=== PATIENT | male | born 1965 | race Caucasian/White ===

== ENCOUNTER 2020-10-03 17:07 | Emergency (ER) | payer OTHER, SELFPAY ==
[2020-10-03 17:40] VITALS: BP 139/87; PULSE 77; RESP 20; TEMP 36.9; O2SAT 98; BMI 25.7
--- NOTE | 2020-10-03 18:06 | HMH.EDUTC ---
[facility] – [place] Disposition Clinical Impression: Orchitis, right Disposition: Home, Self-Care Condition on Discharge: Good Instructions: DI for Orchitis Additional Instructions: Drink plenty of fluids. Take tylenol or ibuprofen for pain or fever. Take the medications as directed. Follow up with your regular doctor. Follow up with urology (Dr. Pritchard). I put in a referral but you need to call that office for an appointment. GO TO THE ER FOR ANY WORSENING SYMPTOMS Prescriptions: Ibuprofen [Ibuprofen 600mg Tablet] 600 mg PO Q6HP PRN #30 tab PRN Reason: Mild Pain Transmission Status: Received by [facility] Doxycycline Hyclate [Doxycycline 100mg Capsule] 100 mg PO Q12 10 Days #20 cap Transmission Status: Received by [facility] Referrals: Say Solano MD [Primary Care Provider] - Chuck Pritchard MD [Staff Physician] - Time of Disposition: 18:24 Medical Decision Making - Medical Records Medical records reviewed: Yes: I reviewed the patient's medical records. - Santana Inquiry Pt receiving controlled substance: No Vital Signs: 10/03/20 17:40 10/03/20 18:26 Temperature 98.4 F 98.4 F Temperature Source Oral Pulse Rate 77 Pulse Rate [Right Brachial] 77 Respiratory Rate 20 20 Blood Pressure 139/87 Blood Pressure [Right Arm] 139/87 Blood Pressure Mean [Right Arm] 104 Blood Pressure Source [Right Arm] Automatic Cuff Blood Pressure Position [Right Arm] Sitting 02 Sat by Pulse Oximetry 98 Oxygen Delivery Method Room Air - Lab Data Lab results reviewed: Yes: I reviewed the patient's lab results. Lab Results 10/03/20 17:57: Urine Color Yellow, Urine Appearance Clear, Urine pH 6.0, Ur Specific Golden 1.005, Urine Protein Negative, Urine Glucose (UA) Negative, Urine Ketones Negative, Urine Blood Negative, Urine Nitrate Negative, Urine Bilirubin Negative, Urine Urobilinogen 0.2, Ur Leukocyte Esterase Negative Orders (Tests/Meds): ED MEDICATIONS Discontinued Medications Generic Name Dose Route Start Last Admin Trade Name Freq PRN Reason Stop Dose Admin Ceftriaxone Sodium 1 gm 10/03/20 18:09 10/03/20 18:15 Ceftriaxone 1gm Vial IM 10/03/20 18:10 1 gm ONCE ONE Administration Protocol Lidocaine HCl 0 ml 10/03/20 18:09 10/03/20 18:15 Lidocaine 1% 5ml Pf Vial IM 10/03/20 18:10 2.1 ml ONCE ONE Administration ORDERS Category Date Time Status Urine Culture Stat Micro 10/03/20 17:45 Received [facility] [place] HPI - General Stated complaint: testicle swollen Time Seen by Provider: 10/03/20 18:06 Mode of Arrival: Ambulatory Source of Information: Patient Limitations: No Limitations Description of Symptoms (Recalled from Triage Doc. by RN): PATIENT C/O SWELLING AND PAIN TO RIGHT TESTICLE X 1 WEEK. DENIES ANY DIFFICULTY URINATING HEENT Symptoms (Recalled from RN notes): No Resp Symptoms (Recalled from RN notes): No Skin Symptoms (Recalled from RN notes): No MS Symptoms (Recalled from RN notes): No Functional Status (Recalled from RN notes): WNL - History of Present Illness Provider Complaint: He states that for the past 1 week he has had right testicular swelling and tenderness. He denies any dysuria. He denies any fever/chills. He denies redness or swelling elsewhere. Pain scale is 2/10. He states that it really only hurts when he tries to walk fast. - Related Data Previous Rx's Medication Instructions Recorded Doxycycline Hyclate [Doxycycline 100 mg PO Q12 10 Days #20 cap 10/03/20 100mg Capsule] Ibuprofen [Ibuprofen 600mg 600 mg PO Q6HP PRN #30 tab 10/03/20 Tablet] Allergies Allergy/AdvReac Type Severity Reaction Status Date / Time No Known Allergies Allergy Verified 10/03/20 18:00 - Worker's Comp Is this a Worker's Comp case?: No [facility] History - Hepatitis A Screen Drug use history?: No High risk sexual behaviors?: No History of sexually transmitted infection?: No Currently employed?: No
[2020-10-03 18:26] VITALS: BP 139/87; PULSE 77; RESP 20; TEMP 36.9; O2SAT 98
[2020-10-03 18:46] LABS: Apearance,Urine Clear (Clear); Bilirubin,Urine Negative (Negative); Blood, Urine Negative (Negative); Color,Urine Yellow (Yellow); Glucose,Urine (UA) Negative (Negative); Ketones,Urine Negative (Negative); Protein,Urine Negative (Negative); Specific Gravity, Urine 1.005 (1.005-1.030)
[2020-10-03 18:47] LABS: UTC Leukocyte Esterase,Urine Negative (Negative); UTC Nitrate,Urine Negative (Negative); Urobilinogen,Urine 0.2 EU/dl (0.2)
[2020-10-06 18:13] LABS: Neisseria gonorrhoeae, NAA Negative (Negative)
== END 2020-10-03 18:30 | disposition home or self-care (01) ==
PROVIDERS: Emergency Provider Nurse Practitioner Family; PCP Family Medicine
DX: N45.2 Orchitis (principal); F17.290 Nicotine dependence, other tobacco product, uncomplicated
CPT/HCPCS: 81003; 87086; 87491; 87591; 96372; 99202; G0463

== ENCOUNTER → 2020-10-20 10:52 | Outpatient (CLI) | payer OTHER, SELFPAY ==
--- NOTE | 2020-10-20 10:52 | US_ITS ---
PROCEDURE: US TESTICULAR CLINICAL INDICATION: Right testicular pain and swelling COMPARISON: No exams were available for comparison FINDINGS: There is a large hydrocele on the right. The right testicle has an unremarkable appearance measuring 5 x 2 x 2.4 cm. Blood flow is present. No obvious testicular mass. The fluid in the right hydrocele is anechoic without significant debris. The right hemiscrotum with hydrocele measures 10 x 8 cm. The left testicle is 4 x 2 x 2 cm and has an unremarkable appearance. Blood flow is present. No obvious testicular mass. No hydrocele on the left. IMPRESSION: Large right hydrocele. Dictated by: Victoriano Brown MD 10/21/2020 07:23 Victoriano Brown MD in [place] 10/21/2020 07:23
== END ==
PROVIDERS: PCP Family Medicine; Visit Provider Urology
DX: N50.89 Other specified disorders of the male genital organs (principal)
CPT/HCPCS: 76870

== ENCOUNTER → 2020-11-04 12:20 | Outpatient (CLI) | payer OTHER, SELFPAY ==
[2020-11-04 12:22] LABS: MANUAL DIFFERENTIAL MANUAL DIFFERENTIAL (MANUAL DIFF)
[2020-11-04 12:46] LABS: Basophils % 0.5 % (0.1-2.0); Eosinophils % 0.4 % (0.1-12.0); Hematocrit 40.2 % (42.0-52.0); Hemoglobin 13.9 g/dL (14.1-18.0); Lymphocytes # 0.9 K/mm3 (0.7-4.5); Lymphocytes % 18.3 % (10-50); Mean Corpuscular HGB Conc 34.6 g/dL (31.8-35.4); Mean Corpuscular Hemoglobin 32.9 pg (27.0-31.2); Mean Corpuscular Volume 94.9 fl (80-94); Mean Platelet Volume 7.1 fl (7.4-10.4); Monocytes # 0.5 K/mm3 (0.1-1.0); Monocytes % 8.6 % (1.7-9.3); Neutrophils # 3.7 K/mm3 (1.8-7.8); Neutrophils % 72.2 % (37.0-80.0); Platelet Count 134 K/mm3 (142-424); Red Blood Count 4.23 M/mm3 (4.60-6.20); Red Cell Distribution Width 13.6 % (11.5-17.5); White Blood Count 5.2 K/mm3 (4.8-10.8)
[2020-11-04 13:16] LABS: Lymphocytes % 17 % (10-50); Monocytes % 6 % (2-9); Neutrophils % 77 % (42-76); Platelet Estimate Normal; RBC Morphology Normal; Total Cells Counted 100
[2020-11-04 14:00] LABS: Anion Gap 14.5 mEq/L (5-15); Blood Urea Nitrogen 8 mg/dl (9-20); Calcium 8.6 mg/dl (8.4-10.2); Carbon Dioxide 28 mmol/L (22.0-30.0); Chloride 101 mmol/L (98-107); Estimated Glomerular Filt Rate 116 ml/min (>60); GFR (African American) 141 ML/MIN (>60); Glucose 174 mg/dl (74-100); Potassium 4.5 mmoL/L (3.5-5.1); Sodium 139 mmol/L (136-145)
== END ==
PROVIDERS: Visit Provider Urology
DX: Z01.812 Encounter for preprocedural laboratory examination (principal); Z11.52 Encounter for screening for COVID-19; N43.3 Hydrocele, unspecified
CPT/HCPCS: 36415; 80048; 85007; 85014; 85018; 85048; 85049; U0003

== ENCOUNTER → 2020-11-18 10:12 | Outpatient (CLI) | payer OTHER, SELFPAY | PROVIDERS: Visit Provider Urology | DX: Z01.812 Encounter for preprocedural laboratory examination (principal); Z20.822 Contact with and (suspected) exposure to COVID-19; N43.3 Hydrocele, unspecified | CPT/HCPCS: U0003 ==

== ENCOUNTER 2020-11-20 07:59 | Day surgery (SDC) | payer OTHER, SELFPAY ==
[2020-10-31 13:10] VITALS: BMI 23.0
[2020-11-20] VITALS (10 sets, daily range): BP systolic 142–184; BP diastolic 76–100; PULSE 72–88; RESP 12–18; TEMP 36.2–38; O2SAT 96–99
--- NOTE | 2020-11-20 08:35 | HMH.ANESCL ---
[facility] Anesthesia Checklist - Patient Identification Patient Identification: Arm Band - Structural Data Admitted From: Home Planned Operative Procedure/s: HYdrocele repair Consent for Planned Operative Procedure(s) Verified: Yes - NPO Status Verified Time NPO: 00:00 - Additional verifications Anesthesia Reactions: No Hx Blood Transfusions: Yes Blood Transfusion Reaction: No - Airway Assessment C-Spine Mobility Assessed: Yes TMJ Mobility Assessed: Yes Dentition: Poor Dentition (Missing) - Neurological Assessment Level of Consciousness: Awake Hx Seizures: No Numbness or tingling in extremities: Yes - Anesthesia Plan Anesthesia Risk discussed: Yes Anesthesia Plan: Verified ASA Class: II Anesthesia Type: General [facility] History I have reviewed the patient's past medical history: Yes Medical History: Reports:: Hyperlipidemia, Hypertension Denies:: Cancer, Diabetes Mellitus Type 1, Diabetes Mellitus Type 2, MRSA, Seizures *Have you ever received a pneumonia vaccine?: No *Have you received a flu vaccine this season?: No Other Medical History: Reports: Anemia, Arthritis. Denies: Blood Transfusion Reaction Anesthesia experience/problems:: None Other Surgeries: Yes: No Previous Surgery Amputation: No Fractures: No - *Social History Last grade of school completed: High school graduate Smoking Status: Never smoker Tobacco Type: smokeless tobacco # Packs/Day (cigarettes): 0 Alcohol Intake: never Substance Use Type: denies use *Occupational Status:: employed Housing: house Household Members: children *Travel in the last 8 weeks: None Family Hx:: Cancer, Coronary Artery Disease, Heart Attack
--- NOTE | 2020-11-20 13:45 | HMH.ANESI ---
[facility] Anesthesia Record Part I Intake, IV Amount: 1,200 Estimated blood loss (mL): 5 Urine output (mL): 0 Blood Pressure: 150/88 SaO2: 98 Pulse Rate: 74 Respiratory Rate: 12 Temperature: 97.2 F Patient is:: Awake, Drowsy Stable to PACU at:: 12:07
--- NOTE | 2020-11-20 16:09 | P.OP_ITS ---
Date of procedure: 11/20/20 Pre-op Diagnosis:: Right hydrocele Post-op Diagnosis:: Right hydrocele Procedure performed:: Right hydrocelectomy Surgeon:: Chuck Pritchard MD [employer] ASSISTANT:: Other (Robles) Anesthesia: LMA Estimated blood loss (mL): 10 Clinical Note:: 55-year-old white male with right hydrocele presents for urologic management. Operative findings:: Large right hydrocele with normal testicle. Operative note:: Patient taken to the operating room after informed consent was obtained. Placed on the operating room table in the supine position and general anesthesia administered. Preoperative antibiotics and sequential compression devices placed. Patient was prepped and draped in the standard surgical fashion. Cord block was placed into the right spermatic cord. Local anesthetic also placed into the midline raphae. Incision was made in the skin of the midline raphae and carried down through the dartos fascia. The hydrocele sac was dissected free from its surrounding investing tissue and brought out through the incision. The hydrocele was heavily invested with surrounding tissue. The sac was incised total of 250 cc dee fluid obtained from the hydrocele sac. Sac was incised throughout its length a portion of the sac was excised. Hemostasis was achieved and the hydrocele sac from behind the testicle with a running 3-0 chromic care not take the neck of the repair too tight. The testicle itself was within normal limits. The testicle then placed back into the hemiscrotum and a Tristen drain placed into the dependent portion of the right hemiscrotum. It was sewn in with a silk suture. The dartos fascia was then closed with a running 3-0 chromic skin closed with interrupted horizontal mattress 4-0 chromic's. Pressure dressing applied. Patient tolerated procedure well no complications. Discharged to recovery in stable condition. Condition: stable Disposition: PACU Specimens:: Portion of the hydrocele sac Complications:: None
[2020-11-22 12:25] VITALS: BP 159/92; PULSE 77; TEMP 36.2
--- NOTE | 2020-11-22 12:25 | P.PN_ITS ---
[facility] Anesthesia Record Part II Discharge Time: 12:27 Destination: Surgical Day Care (OP Surgery) PACU nurse assessment reviewed?: Yes Patient Condition:: Good Anesthesia Complications:: None Swallowing reflex intact?: Yes Cyanosis?: No Blood Pressure: 159/92 Pulse Rate: 77 Temperature: 97.2 F Mental Status: Alert & Oriented Pain level:: 0 Nausea and/or vomitting:: None Intake, IV Amount: 0
== END 2020-11-20 13:00 | disposition home or self-care (01) ==
LOC: OR 08:00
PROVIDERS: PCP Family Medicine; Visit Provider Urology
PROC: (CPT 55040; principal; 2020-11-20 09:45)
DX: N43.3 Hydrocele, unspecified (principal); E78.5 Hyperlipidemia, unspecified; I10 Essential (primary) hypertension
CPT/HCPCS: 55040; J2405

== ENCOUNTER → 2021-05-04 10:52 | Outpatient (CLI) | payer OTHER, SELFPAY ==
--- NOTE | 2021-05-04 11:06 | XR_ITS ---
PROCEDURE: XR WRIST RT MIN 3V CLINICAL INDICATION: RT WRIST PAIN COMPARISON: No exams were available for comparison FINDINGS: There are severe osteoarthritic changes at the radiocarpal joint with loss of joint space at the radial scaphoid joint with osteosclerosis of the proximal aspect of the scaphoid and the distal aspect of the radius. Scaphoid actually causes indentation upon the distal aspect of the radius. There is widening of the scapholunate space with the lunate somewhat displaced medially. Osteoarthritic changes are present at the scapho trapezium joint and at the 1st carpal metacarpal junction. Chondrocalcinosis is present at the triangular fibrocartilage. On the lateral view there is a somewhat cloverleaf shaped calcific body dorsal to the radiocarpal junction. This may represent displaced bony fragment from the distal radius. There are no old exams available for comparison. CT of the wrist may provide further evaluation. IMPRESSION: 1. Calcific body measuring 14 x 12 mm along the dorsal aspect of the wrist at the radial carpal junction which could account for a palpable abnormality along the dorsal wrist. 2. The severe osteoarthritic changes at the scapho radial joint with concave deformity of the distal radius and impaction of the scaphoid in that deformity. Is are history of an old fracture?. There is widening of the scapholunate space with mild medial displacement of the lunate suggesting ligamentous injury. 3. Consider CT of the wrist as well as correlation with old films and patient's history for further evaluation. Dictated by: Victoriano Brown MD 05/04/2021 12:04 Victoriano Brown MD in [place] 05/04/2021 12:04
--- NOTE | 2021-05-04 11:06 | XR_ITS ---
PROCEDURE: XR SHOULDER LT MIN 2V CLINICAL INDICATION: LT SHOULDER PAIN, UNSPECIFIED CHRONICITY COMPARISON: No exams were available for comparison FINDINGS: There hypertrophic changes along the superior distal aspect of the clavicle. There are mild osteoarthritic changes of the glenohumeral joint with mild subacromial stenosis. The subcortical cystic changes are present along the humeral head laterally at the base of the greater tuberosity. No fracture or dislocation. IMPRESSION: Osteoarthritic changes of the left shoulder with subacromial stenosis and suspected subchondral cystic change of the humeral head Dictated by: Victoriano Brown MD 05/04/2021 11:59 Victoriano Brown MD in [place] 05/04/2021 11:59
[2021-05-04 11:13] LABS: Basophils % 0.6 % (0.1-2.0); Eosinophils # 0.1 K/mm3 (0.0-0.4); Eosinophils % 1.3 % (0.1-12.0); Hematocrit 40.8 % (42.0-52.0); Lymphocytes # 1.2 K/mm3 (0.7-4.5); Lymphocytes % 21.9 % (10-50); Mean Corpuscular HGB Conc 34.2 g/dL (31.8-35.4); Mean Corpuscular Hemoglobin 30.2 pg (27.0-31.2); Mean Corpuscular Volume 88.3 fl (80-94); Mean Platelet Volume 7.8 fl (7.4-10.4); Monocytes # 0.4 K/mm3 (0.1-1.0); Monocytes % 6.4 % (1.7-9.3); Neutrophils # 3.9 K/mm3 (1.8-7.8); Neutrophils % 69.7 % (37.0-80.0); Platelet Count 234 K/mm3 (142-424); Red Blood Count 4.63 M/mm3 (4.60-6.20); Red Cell Distribution Width 13.4 % (11.5-17.5); White Blood Count 5.6 K/mm3 (4.8-10.8)
--- NOTE | 2021-05-04 11:14 | XR_ITS ---
PROCEDURE: XR SHOULDER RT MIN 2V CLINICAL INDICATION: RT SHOULDER PAIN, UNSPECIFIED CHRONICITY COMPARISON: CR XR SHOULDER LT MIN 2V from 05/04/2021 FINDINGS: There osteoarthritic changes with hypertrophic change of the acromioclavicular joint. There is subacromial stenosis. Mild osteoarthritic changes are present at the glenohumeral joint. No acute fracture or dislocation. No lytic or blastic change. IMPRESSION: Osteoarthritic changes with subacromial stenosis Dictated by: Victoriano Brown MD 05/04/2021 11:49 Victoriano Brown MD in [place] 05/04/2021 11:49
[2021-05-04 12:28] LABS: Alanine Aminotransferase 9 U/L (12-78); Albumin/Globulin Ratio 1.4 (1.1-1.8); Alkaline Phosphatase 59 U/L (38-126); Anion Gap 8.5 mEq/L (5-15); Aspartate Amino Transferase 21 U/L (17-59); Bilirubin,Total 0.3 mg/dl (0.2-1.3); Blood Urea Nitrogen 9 mg/dl (9-20); Calcium 9.1 mg/dl (8.4-10.2); Carbon Dioxide 30 mmol/L (22.0-30.0); Chloride 101 mmol/L (98-107); Estimated Glomerular Filt Rate 87 ml/min (>60); GFR (African American) 105 ML/MIN (>60); Globulin 2.9 g/dL (1.3-3.2); Glucose 100 mg/dl (74-100); Potassium 4.5 mmoL/L (3.5-5.1); Sodium 135 mmol/L (136-145); Total Protein,Serum 6.9 g/dl (6.3-8.2); Uric Acid 6.4 mg/dl (3.5-8.5)
[2021-05-04 14:22] LABS: Erythrocyte Sedimentation Rate 15 mm/hr (0-20)
[2021-05-05 09:12] LABS: RA Latex Turbid. <10.0 IU/mL (<14.0)
[2021-05-07 11:33] LABS: Antinuclear Antibodies, IFA Negative (.)
== END ==
PROVIDERS: Visit Provider Nurse Practitioner
DX: M25.512 Pain in left shoulder (principal); M25.511 Pain in right shoulder; M25.531 Pain in right wrist
CPT/HCPCS: 36415; 73030; 73110; 80053; 84550; 85025; 85651; 86038; 86431

== ENCOUNTER → 2021-05-17 13:02 | Outpatient (CLI) | payer OTHER, SELFPAY ==
--- NOTE | 2021-05-17 13:06 | XR_ITS ---
PROCEDURE: XR SHOULDER RT MIN 2V CLINICAL INDICATION: right shoulder pain COMPARISON: CR XR SHOULDER RT MIN 2V from 05/04/2021 CR XR SHOULDER LT MIN 2V from 05/04/2021 FINDINGS: No fracture or dislocation. No lytic or blastic change. There is normal mineralization. Moderate to severe osteoarthritic change of the glenohumeral joint and acromioclavicular joint with bony hypertrophy at the AC joint. Subacromial stenosis. Well-circumscribed calcific density noted lateral to the lateral aspect of the acromion measuring 3 mm. IMPRESSION: Osteoarthritis with subacromial stenosis Dictated by: Victoriano Brown MD 05/17/2021 16:22 Victoriano Brown MD in [place] 05/17/2021 16:22
--- NOTE | 2021-05-17 13:06 | XR_ITS ---
PROCEDURE: XR SHOULDER LT MIN 2V CLINICAL INDICATION: left shoulder pain The the COMPARISON: CR XR SHOULDER RT MIN 2V from 05/04/2021 CR XR SHOULDER LT MIN 2V from 05/04/2021 FINDINGS: No fracture or dislocation. No lytic or blastic change. There is normal mineralization. Mild osteoarthritic change of the glenohumeral joint and acromioclavicular joint. Mild subacromial stenosis. IMPRESSION: Mild osteoarthritic change with mild subacromial stenosis Dictated by: Victoriano Brown MD 05/17/2021 16:26 Victoriano Brown MD in [place] 05/17/2021 16:26
== END ==
PROVIDERS: PCP Family Medicine; Visit Provider Orthopaedic Surgery
DX: M25.512 Pain in left shoulder (principal); M25.511 Pain in right shoulder
CPT/HCPCS: 73030

== ENCOUNTER → 2021-06-28 13:16 | Outpatient (CLI) | payer OTHER, SELFPAY ==
--- NOTE | 2021-06-28 13:22 | XR_ITS ---
FINAL REPORT CLINICAL HISTORY: cough, r/o covid FINDINGS: The heart size is normal. The mediastinum is normal. There is no focal infiltrate or edema. There are no pleural effusions. There is no pneumothorax. There is no osseous abnormality. IMPRESSION: No acute cardiopulmonary process Reviewed, Interpreted and Dictated by Dominic Cam MD Transcribed by Israel Gomez Authenticated by Dominic Cam MD on 06/28/2021 02:22:27 PM [facility]
[2021-06-28 13:46] LABS: Adenovirus,PCR Not Detected (NotDetected); Bordetella Pertussis Not Detected (NotDetected); Chlamydophila Pneumoniae, PCR Not Detected (NotDetected); Coronavirus 229E Not Detected (NotDetected); Coronavirus NL63 Not Detected (NotDetected); Coronavirus OC43 Not Detected (NotDetected); Coronovirus HKU1,PCR Not Detected (NotDetected); Human Metapneumovirus Not Detected (NotDetected); Influenza A, PCR Not Detected (NotDetected); Influenza AH1, 2009 Not Detected (NotDetected); Influenza AH1, PCR Not Detected (NotDetected); Influenza AH3,PCR Not Detected (NotDetected); Influenza B, PCR Not Detected (NotDetected); Mycoplasma Pneumoniae, PCR Not Detected (NotDetected); Parainfluenza 1, PCR Not Detected (NotDetected); Parainfluenza 2, PCR Not Detected (NotDetected); Parainfluenza 3, PCR Not Detected (NotDetected); Parainfluenza 4, PCR Not Detected (NotDetected); Respiratory Syncytial Virus Not Detected (NotDetected); Rhinovirus/Enterovirus Not Detected (NotDetected)
[2021-06-28 13:57] LABS: Basophils # 0.1 K/mm3 (0-0.2); Basophils % 0.8 % (0.1-2.0); Eosinophils # 0.1 K/mm3 (0.0-0.4); Hematocrit 43.2 % (42.0-52.0); Hemoglobin 14.6 g/dL (14.1-18.0); Lymphocytes # 1.5 K/mm3 (0.7-4.5); Lymphocytes % 22.8 % (10-50); Mean Corpuscular HGB Conc 33.7 g/dL (31.8-35.4); Mean Corpuscular Hemoglobin 30.6 pg (27.0-31.2); Mean Corpuscular Volume 90.7 fl (80-94); Mean Platelet Volume 8.1 fl (7.4-10.4); Monocytes # 0.3 K/mm3 (0.1-1.0); Monocytes % 5.3 % (1.7-9.3); Neutrophils # 4.5 K/mm3 (1.8-7.8); Neutrophils % 70.1 % (37.0-80.0); Platelet Count 242 K/mm3 (142-424); Red Blood Count 4.76 M/mm3 (4.60-6.20); Red Cell Distribution Width 13.9 % (11.5-17.5); White Blood Count 6.4 K/mm3 (4.8-10.8)
[2021-06-28 16:02] LABS: Coronavirus 19, PCR Detected (NotDetected)
== END ==
PROVIDERS: PCP Physician Assistant; Visit Provider Physician Assistant
DX: U07.1 COVID-19 (principal)
CPT/HCPCS: 36415; 71045; 85025; 87581; 87632; 87798; C9803; U0003; U0005

== ENCOUNTER 2021-07-19 11:41 | Outpatient (RCR) | payer OTHER, SELFPAY | END 2021-07-19 12:41 | disposition home or self-care (01) | LOC: OT 11:41 | PROVIDERS: Visit Provider Orthopaedic Surgery | DX: G56.02 Carpal tunnel syndrome, left upper limb (principal) | CPT/HCPCS: 97763 ==

== ENCOUNTER → 2021-07-24 13:07 | Outpatient (CLI) | payer OTHER, SELFPAY ==
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
== END ==
PROVIDERS: PCP Orthopaedic Surgery; Visit Provider Orthopaedic Surgery
DX: M25.531 Pain in right wrist (principal)
CPT/HCPCS: 73200

== ENCOUNTER 2021-10-30 10:06 | Outpatient (RCR) | payer OTHER, SELFPAY ==
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
== END 2021-10-30 10:10 | disposition home or self-care (01) ==
LOC: OT 10:06
PROVIDERS: Visit Provider Orthopaedic Surgery
DX: M12.811 Other specific arthropathies, not elsewhere classified, right shoulder (principal); M75.21 Bicipital tendinitis, right shoulder; M12.812 Other specific arthropathies, not elsewhere classified, left shoulder; M75.22 Bicipital tendinitis, left shoulder
CPT/HCPCS: 97166

== ENCOUNTER → 2021-12-20 09:10 | Outpatient (CLI) | payer OTHER, SELFPAY ==
--- NOTE | 2021-12-20 09:15 | XR_ITS ---
FINAL REPORT CLINICAL HISTORY: BILATERAL shoulder pain COMPARISON: 05/17/2021 FINDINGS: LEFT SHOULDER: 3 views of the left shoulder were obtained. There is no acute fracture or dislocation. There are mild degenerative changes of the acromioclavicular and glenohumeral joints. There is no soft tissue abnormality. IMPRESSION: Degenerative change, stable. Reviewed, Interpreted and Dictated by Christopher Spencer III, MD Transcribed by Christen Bryan Authenticated and [facility]
--- NOTE | 2021-12-20 09:15 | XR_ITS ---
FINAL REPORT CLINICAL HISTORY: BILATERAL shoulder pain FINDINGS: RIGHT SHOULDER 3 views of the right shoulder were obtained. There is no acute fracture or dislocation. There is moderate acromioclavicular and mild glenohumeral joint degenerative change. There is no soft tissue abnormality. IMPRESSION: Degenerative change with no acute bony abnormality. Reviewed, Interpreted and Dictated by Christopher Spencer III, MD Transcribed by Christen Bryan Authenticated and [facility]
== END ==
PROVIDERS: PCP Family Medicine; Visit Provider Orthopaedic Surgery
DX: M25.511 Pain in right shoulder (principal); M25.512 Pain in left shoulder; G89.29 Other chronic pain
CPT/HCPCS: 73030

== ENCOUNTER → 2022-07-04 13:14 | Outpatient (CLI) | payer OTHER, SELFPAY ==
[2022-07-04 19:10] LABS: Adenovirus,PCR Not Detected (NotDetected); Bordetella Pertussis Not Detected (NotDetected); Chlamydophila Pneumoniae, PCR Not Detected (NotDetected); Coronavirus 19, PCR Not Detected (NotDetected); Coronavirus 229E Not Detected (NotDetected); Coronavirus NL63 Not Detected (NotDetected); Coronavirus OC43 Not Detected (NotDetected); Coronovirus HKU1,PCR Not Detected (NotDetected); Human Metapneumovirus Not Detected (NotDetected); Influenza A, PCR Not Detected (NotDetected); Influenza AH1, 2009 Not Detected (NotDetected); Influenza AH1, PCR Not Detected (NotDetected); Influenza AH3,PCR Not Detected (NotDetected); Influenza B, PCR Not Detected (NotDetected); Mycoplasma Pneumoniae, PCR Not Detected (NotDetected); Parainfluenza 1, PCR Not Detected (NotDetected); Parainfluenza 2, PCR Not Detected (NotDetected); Parainfluenza 3, PCR Not Detected (NotDetected); Parainfluenza 4, PCR Not Detected (NotDetected); Respiratory Syncytial Virus Not Detected (NotDetected); Rhinovirus/Enterovirus Not Detected (NotDetected)
[2022-07-04 19:14] LABS: Basophils # 0.1 K/mm3 (0-0.2); Basophils % 0.5 % (0.1-2.0); Eosinophils % 0.4 % (0.1-12.0); Hematocrit 44.3 % (42.0-52.0); Hemoglobin 14.7 g/dL (14.1-18.0); Lymphocytes # 1.3 K/mm3 (0.7-4.5); Lymphocytes % 12.6 % (10-50); Mean Corpuscular HGB Conc 33.2 g/dL (31.8-35.4); Mean Corpuscular Hemoglobin 30.2 pg (27.0-31.2); Mean Corpuscular Volume 90.9 fl (80-94); Mean Platelet Volume 8.3 fl (7.4-10.4); Monocytes # 0.6 K/mm3 (0.1-1.0); Monocytes % 6.3 % (1.7-9.3); Neutrophils # 8.1 K/mm3 (1.8-7.8); Neutrophils % 80.2 % (37.0-80.0); Platelet Count 209 K/mm3 (142-424); Red Blood Count 4.87 M/mm3 (4.60-6.20); Red Cell Distribution Width 13.9 % (11.5-17.5); White Blood Count 10.2 K/mm3 (4.8-10.8)
== END ==
PROVIDERS: PCP Nurse Practitioner; Visit Provider Nurse Practitioner
DX: J06.9 Acute upper respiratory infection, unspecified (principal)
CPT/HCPCS: 85025; 87581; 87632; 87798; C9803; U0003; U0005

== ENCOUNTER → 2022-07-11 10:49 | Outpatient (CLI) | payer OTHER, SELFPAY ==
--- NOTE | 2022-07-11 10:58 | XR_ITS ---
FINAL REPORT CLINICAL HISTORY: shoulder pain COMPARISON: 12/20/2021 FINDINGS: Right shoulder Three views were obtained. There is no acute fracture or dislocation. There are moderate hypertrophic changes of the AC joint. The glenohumeral joint is intact. No soft tissue abnormality is identified. IMPRESSION: Moderate hypertrophic changes of the AC joint. Reviewed, Interpreted and Dictated by Dominic Cam MD Transcribed by Kylah Haskins Authenticated and [facility]
--- NOTE | 2022-07-11 10:58 | XR_ITS ---
FINAL REPORT CLINICAL HISTORY: shoulder pain COMPARISON: 05/17/2021 FINDINGS: Left shoulder Three views were obtained. There is no acute fracture or dislocation. There are [id number] hypertrophic changes of the AC joint. The glenohumeral joint is intact. No soft tissue abnormality is identified. IMPRESSION: Degenerative changes of the AC joint. Reviewed, Interpreted and Dictated by Dominic Cam MD Transcribed by Kylah Haskins Authenticated and [facility] [place]
== END ==
PROVIDERS: PCP Family Medicine; Visit Provider Orthopaedic Surgery
DX: M25.512 Pain in left shoulder (principal); M25.511 Pain in right shoulder
CPT/HCPCS: 73030

== ENCOUNTER → 2022-08-26 09:50 | Outpatient (CLI) | payer OTHER, SELFPAY ==
[2022-08-26 18:12] LABS: Adenovirus,PCR Not Detected (NotDetected); Bordetella Pertussis Not Detected (NotDetected); Chlamydophila Pneumoniae, PCR Not Detected (NotDetected); Coronavirus 229E Not Detected (NotDetected); Coronavirus NL63 Not Detected (NotDetected); Coronavirus OC43 Not Detected (NotDetected); Coronovirus HKU1,PCR Not Detected (NotDetected); Human Metapneumovirus Not Detected (NotDetected); Influenza A, PCR Not Detected (NotDetected); Influenza AH1, 2009 Not Detected (NotDetected); Influenza AH1, PCR Not Detected (NotDetected); Influenza AH3,PCR Not Detected (NotDetected); Influenza B, PCR Not Detected (NotDetected); Mycoplasma Pneumoniae, PCR Not Detected (NotDetected); Parainfluenza 1, PCR Not Detected (NotDetected); Parainfluenza 2, PCR Not Detected (NotDetected); Parainfluenza 3, PCR Not Detected (NotDetected); Parainfluenza 4, PCR Not Detected (NotDetected); Respiratory Syncytial Virus Not Detected (NotDetected); Rhinovirus/Enterovirus Not Detected (NotDetected)
[2022-08-26 18:35] LABS: Basophils % 0.5 % (0.1-2.0); Eosinophils # 0.1 K/mm3 (0.0-0.4); Eosinophils % 1.5 % (0.1-12.0); Hematocrit 45.5 % (42.0-52.0); Hemoglobin 14.8 g/dL (14.1-18.0); Lymphocytes % 14.1 % (10-50); Mean Corpuscular HGB Conc 32.5 g/dL (31.8-35.4); Mean Corpuscular Hemoglobin 30.1 pg (27.0-31.2); Mean Corpuscular Volume 92.6 fl (80-94); Mean Platelet Volume 8.7 fl (7.4-10.4); Monocytes # 0.4 K/mm3 (0.1-1.0); Monocytes % 6.3 % (1.7-9.3); Neutrophils # 5.4 K/mm3 (1.8-7.8); Neutrophils % 77.7 % (37.0-80.0); Platelet Count 242 K/mm3 (142-424); Red Blood Count 4.92 M/mm3 (4.60-6.20); Red Cell Distribution Width 13.9 % (11.5-17.5); White Blood Count 6.9 K/mm3 (4.8-10.8)
[2022-08-26 21:39] LABS: Coronavirus 19, PCR Detected (NotDetected)
== END ==
PROVIDERS: PCP Nurse Practitioner; Visit Provider Nurse Practitioner
DX: R05.9 Cough, unspecified (principal); J02.9 Acute pharyngitis, unspecified; J06.9 Acute upper respiratory infection, unspecified; U07.1 COVID-19
CPT/HCPCS: 85025; 87581; 87632; 87798; C9803; U0003; U0005

== ENCOUNTER → 2023-02-20 23:32 | Outpatient (CLI) | payer OTHER, SELFPAY ==
[2023-02-20 19:16] LABS: Chloride 104 mmol/L (98-107); Sodium 139 mmol/L (136-145)
[2023-02-20 19:17] LABS: Potassium 3.8 mmoL/L (3.5-5.1)
[2023-02-20 19:19] LABS: Alanine Aminotransferase 13 U/L (12-78); Albumin Level 3.8 g/dl (3.5-5.0); Albumin/Globulin Ratio 1.2 (1.1-1.8); Alkaline Phosphatase 71 U/L (38-126); Anion Gap 10.8 mEq/L (5-15); Aspartate Amino Transferase 24 U/L (17-59); Bilirubin,Total 0.6 mg/dl (0.2-1.3); Blood Urea Nitrogen 6 mg/dl (9-20); Calcium 8.5 mg/dl (8.4-10.2); Carbon Dioxide 28 mmol/L (22.0-30.0); Estimated Glomerular Filt Rate 115 ml/min (>60); GFR (African American) 139 ML/MIN (>60); Globulin 3.2 g/dL (1.3-3.2); Glucose 113 mg/dl (74-100)
[2023-02-20 20:03] LABS: Basophils % 0.3 % (0.1-2.0); Eosinophils % 0.5 % (0.1-12.0); Hematocrit 42.4 % (42.0-52.0); Hemoglobin 13.8 g/dL (14.1-18.0); Lymphocytes # 1.2 K/mm3 (0.7-4.5); Lymphocytes % 17.1 % (10-50); Mean Corpuscular HGB Conc 32.6 g/dL (31.8-35.4); Mean Corpuscular Volume 104.2 fl (80-94); Mean Platelet Volume 8.9 fl (7.4-10.4); Monocytes # 0.3 K/mm3 (0.1-1.0); Monocytes % 4.6 % (1.7-9.3); Neutrophils # 5.3 K/mm3 (1.8-7.8); Neutrophils % 77.4 % (37.0-80.0); Platelet Count 184 K/mm3 (142-424); Red Blood Count 4.07 M/mm3 (4.60-6.20); Red Cell Distribution Width 14.6 % (11.5-17.5); White Blood Count 6.8 K/mm3 (4.8-10.8)
[2023-02-21 18:33] LABS: Adenovirus F 40/41, stool Not Detected (NotDetected); Astrovirus Not Detected (NotDetected); Campylobacter Not Detected (NotDetected); Clostridium Difficile A/B, PCR Not Detected (NotDetected); Cryptosporidium Not Detected (NotDetected); Cyclospora Cayetanesis Not Detected (NotDetected); Entamoeba histolytica Not Detected (NotDetected); Enteroaggregative E coli Not Detected (NotDetected); Enterotoxigenic E coli Not Detected (NotDetected); Giardia lamblia Not Detected (NotDetected); Norovirus Not Detected (NotDetected); Plesimonas Shigalloides, PCR Not Detected (NotDetected); Rotavirus A Not Detected (NotDetected); Salmonella, PCR Not Detected (NotDetected); Sapovirus Not Detected (NotDetected); Shiga-like toxin E coli Not Detected (NotDetected); Shigella Enterovasive E coli Not Detected (NotDetected); Vibrio Cholerae Not Detected (NotDetected); Vibrio, PCR Not Detected (NotDetected); Yersinia Entercolitica, PCR Not Detected (NotDetected)
[2023-02-21 20:56] LABS: Enteropathogenic E coli Detected (NotDetected)
== END ==
PROVIDERS: PCP Family Medicine; Visit Provider Family Medicine
DX: R69 Illness, unspecified (principal); R19.7 Diarrhea, unspecified; R51.9 Headache, unspecified; A04.0 Enteropathogenic Escherichia coli infection
CPT/HCPCS: 80053; 85025; 87506

== ENCOUNTER → 2023-02-21 23:45 | Outpatient (CLI) | payer OTHER, SELFPAY | PROVIDERS: PCP Family Medicine; Visit Provider Family Medicine | DX: R69 Illness, unspecified (principal) ==

== ENCOUNTER → 2023-04-07 08:25 | Outpatient (CLI) | payer OTHER, SELFPAY ==
[2023-04-07 22:02] LABS: Basophils % 0.3 % (0.1-2.0); Eosinophils % 0.6 % (0.1-12.0); Hemoglobin 11.8 g/dL (14.1-18.0); Lymphocytes # 1.2 K/mm3 (0.7-4.5); Lymphocytes % 18.9 % (10-50); Mean Corpuscular HGB Conc 34.6 g/dL (31.8-35.4); Mean Corpuscular Hemoglobin 35.7 pg (27.0-31.2); Mean Platelet Volume 9.3 fl (7.4-10.4); Monocytes # 0.2 K/mm3 (0.1-1.0); Monocytes % 3.7 % (1.7-9.3); Neutrophils % 76.5 % (37.0-80.0); Platelet Count 193 K/mm3 (142-424); Red Blood Count 3.31 M/mm3 (4.60-6.20); White Blood Count 6.5 K/mm3 (4.8-10.8)
[2023-04-07 22:12] LABS: Alanine Aminotransferase 28 U/L (12-78); Albumin Level 3.7 g/dl (3.5-5.0); Albumin/Globulin Ratio 1.3 (1.1-1.8); Alkaline Phosphatase 67 U/L (38-126); Anion Gap 12.9 mEq/L (5-15); Aspartate Amino Transferase 34 U/L (17-59); Bilirubin,Total 0.4 mg/dl (0.2-1.3); Blood Urea Nitrogen 11 mg/dl (9-20); Calcium 8.7 mg/dl (8.4-10.2); Carbon Dioxide 25 mmol/L (22.0-30.0); Chloride 102 mmol/L (98-107); Estimated Glomerular Filt Rate 76 ml/min (>60); GFR (African American) 92 ML/MIN (>60); Globulin 2.9 g/dL (1.3-3.2); Glucose 173 mg/dl (74-100); Potassium 3.9 mmoL/L (3.5-5.1); Sodium 136 mmol/L (136-145); Total Protein,Serum 6.6 g/dl (6.3-8.2); Uric Acid 8.6 mg/dl (3.5-8.5)
== END ==
PROVIDERS: PCP Nurse Practitioner; Visit Provider Nurse Practitioner
DX: M79.89 Other specified soft tissue disorders (principal)
CPT/HCPCS: 80053; 84550; 85025

== ENCOUNTER → 2023-04-10 23:30 | Outpatient (CLI) | payer OTHER, SELFPAY ==
[2023-04-10 22:19] LABS: Hemoglobin A1C 5.7 % (4.0-6.0)
== END ==
PROVIDERS: PCP Nurse Practitioner; Visit Provider Nurse Practitioner
DX: R73.09 Other abnormal glucose (principal)
CPT/HCPCS: 83036

== ENCOUNTER → 2023-04-17 09:04 | Outpatient (CLI) | payer OTHER, SELFPAY ==
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
== END ==
PROVIDERS: PCP Family Medicine; Visit Provider Orthopaedic Surgery
DX: L02.511 Cutaneous abscess of right hand (principal)
CPT/HCPCS: 73130

== ENCOUNTER 2023-05-16 10:59 | Emergency (ER) | payer OTHER, SELFPAY ==
[2023-05-16 11:45] VITALS: BP 192/90; PULSE 79; RESP 19; TEMP 36.4; O2SAT 98; BMI 26.2
--- NOTE | 2023-05-16 12:10 | EXP.UTC ---
Discharge Plan Disposition Patient Disposition: Home, Self-Care Condition: Good Prescriptions Prescriptions: New methocarbamol 500 mg tablet 500 mg PO TID PRN (Reason: muscle spasm) Qty: 12 0RF No Action losartan 100 mg tablet 100 mg PO DAILY Qty: 90 3RF celecoxib [Celebrex] 200 mg capsule 200 mg PO DAILY Qty: 30 2RF colchicine 0.6 mg tablet 0.6 mg PO BID Qty: 60 0RF pantoprazole [Protonix] 40 mg tablet,delayed release (DR/EC) 40 mg PO DAILY Qty: 90 3RF Referrals Follow up/Referrals: Say Solano MD [Primary Care Provider] - See instructions Activity Restrictions/Add. Instructions Additional Instructions/Restrictions: * Tylenol every 4 hours as needed if you need something for pain *Ice 20 minutes every 2 hours for the first 48 hours after the initial injury followed by moist heat every 20 minutes 3-4 times a day to affected area *Muscle relaxer every 8 hours as needed for muscle spasms but remember, it WILL cause drowsiness You cannot take it and drive, operate machinery or care for small children. *Keep this area active, no movement leads to more stiffness, However take it easy and avoid heavy lifting pushing or pulling *Follow up with you family doctor if no improvement for further treatment and evaluation Clinical Impressions Clinical Impression: Low back pain Qualifiers: Chronicity: unspecified Back pain laterality: bilateral Sciatica presence: unspecified whether sciatica present Qualified Code(s): M54.50 - Low back pain, unspecified Instructions Patient Instructions: DI for Low Back Pain, Low Back Pain Discharge ED Provider: Abby Maradiaga [facility] General Stated complaint: Pain in lower Back Mode of Arrival: Ambulatory Source of Information: Patient Limitations: No Limitations Time Seen by Provider: 05/16/23 12:10 Description of Symptoms (Recalled from Triage Doc. by RN): Severe pain in lower back started about a month ago. 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 States that he has had back issues before and feels like he may have pulled something States that he thought it would get better by now but he has still been working Denies radiation of pain Denies loss of control of bowel or bladder Related Data Previous Rx's Medication Instructions Recorded losartan 100 mg tablet 100 mg PO DAILY #90 tabs 02/20/23 colchicine 0.6 mg tablet 0.6 mg PO BID #60 tabs 04/10/23 celecoxib 200 mg capsule (Celebrex) 200 mg PO DAILY osteoarthritis #30 04/17/23 caps pantoprazole 40 mg tablet,delayed 40 mg PO DAILY #90 tabs 04/28/23 release (Protonix) methocarbamol 500 mg tablet 500 mg PO TID PRN muscle spasm #12 05/16/23 tabs Allergies Allergy/AdvReac Type Severity Reaction Status Date / Time No Known Allergies Allergy Verified 05/16/23 12:08 Worker's Comp Is this a Worker's Comp case?: [facility] Dis[facility]: The information contained in this section may have been updated after the patient was seen, as this information can be updated by other users. Social History Smoking Status: Never smoker alcohol intake: never substance use type: denies use current occupational status: employed Travel in the last 8 weeks: None household members: children housing: house ROS Obtained: Yes All systems reviewed & no additional complaints except as documented and Yes Systems reviewed as appropriate & no additional complaints except as documented Constitutional Constitutional: Reports system reviewed and no additional
[2023-05-16 12:16] LABS: Apearance,Urine Clear (Clear); Bilirubin,Urine Negative (Negative); Blood, Urine Negative (Negative); Color,Urine Yellow (Yellow); Glucose,Urine (UA) Negative (Negative); Ketones,Urine Negative (Negative); PH,Urine 5.5 (5.0-8.5); Protein,Urine Negative (Negative); Specific Gravity, Urine 1.005 (1.005-1.030); UTC Leukocyte Esterase,Urine Negative (Negative); UTC Nitrate,Urine Negative (Negative); Urobilinogen,Urine 0.2 EU/dl (0.2)
[2023-05-16 12:20] VITALS: BP 174/82
[2023-05-16 13:39] VITALS: BP 172/82; PULSE 79; RESP 18; TEMP 36.6; O2SAT 98
== END 2023-05-16 13:39 | disposition home or self-care (01) ==
PROVIDERS: Emergency Provider Nurse Practitioner; PCP Family Medicine
DX: M54.50 Low back pain, unspecified (principal); X50.0XXA Overexertion from strenuous movement or load, initial encounter
CPT/HCPCS: 81003; 99212; 99214; G0463

== ENCOUNTER 2023-07-23 12:21 | Emergency (ER) | payer OTHER, SELFPAY ==
[2023-07-23 12:53] VITALS: BP 128/63; PULSE 87; RESP 20; TEMP 36.7; O2SAT 98; BMI 25.7
--- NOTE | 2023-07-23 13:02 | XR_ITS ---
FINAL REPORT CLINICAL HISTORY: fall, right foot pain COMPARISON: None FINDINGS: RIGHT FOOT 3 views of the right foot were obtained. There is no acute fracture or dislocation. There are moderate hypertrophic changes at the dorsal aspect of the foot. Visualized joint spaces are normally aligned. Soft tissues are unremarkable. IMPRESSION: No acute bony abnormality. Reviewed, Interpreted and Dictated by Dominic Cam MD Transcribed by Chloe Caicedo Authenticated and [facility]
--- NOTE | 2023-07-23 13:02 | XR_ITS ---
FINAL REPORT CLINICAL HISTORY: fall, left ankle pain COMPARISON: None FINDINGS: LEFT ANKLE Three views demonstrate no acute fracture or dislocation. The visualized joint spaces are normally aligned. The ankle mortise is intact. There is a small plantar spur. There is mild soft tissue swelling over the lateral malleolus. IMPRESSION: Mild soft tissue swelling without acute bony abnormality. Reviewed, Interpreted and Dictated by Dominic Cam MD Transcribed by Chloe aCicedo Authenticated and [facility]
--- NOTE | 2023-07-23 13:02 | XR_ITS ---
FINAL REPORT CLINICAL HISTORY: fall, right ankle pain COMPARISON: None FINDINGS: RIGHT ANKLE 3 views of the right ankle were obtained. There is no acute fracture or dislocation. The mortise is intact. There are moderate hypertrophic changes over the dorsal aspect of the talonavicular joint. Visualized joint spaces are normally aligned. There is a small os trigonum. There is moderate soft tissue swelling over the lateral malleolus. IMPRESSION: Moderate soft tissue swelling without acute bony abnormality. Reviewed, Interpreted and Dictated by Dominic Cam MD Transcribed by Chloe Caicedo Authenticated and [facility]
--- NOTE | 2023-07-23 13:14 | EXP.UTC ---
Discharge Plan Disposition Patient Disposition: Home, Self-Care Condition: Good Prescriptions Prescriptions: No Action losartan 100 mg tablet 100 mg PO DAILY Qty: 90 3RF celecoxib [Celebrex] 200 mg capsule 200 mg PO DAILY Qty: 30 2RF cefdinir 300 mg capsule 300 mg PO BID Qty: 20 0RF prednisone 20 mg tablet 20 mg PO .COMPLEX Qty: 15 0RF Rx Instructions: 20 mg orally BID x 5 days then daily x 5 days dextromethorphan-guaifenesin 60-1,200 mg tablet extended release 12 hr 1 tab PO Q12H Qty: 60 0RF pantoprazole [Protonix] 40 mg tablet,delayed release (DR/EC) 40 mg PO DAILY Qty: 90 3RF Referrals Follow up/Referrals: Say Solano MD [Primary Care Provider] - See instructions Ángel Philippe DO [Staff Physician] - See instructions Activity Restrictions/Add. Instructions Additional Instructions/Restrictions: *weight bearing as tolerated *RICE, Rest the extremity, Ice 15-20 minutes 3-4 times daily, Compress- wear the brandon wrap as discussed as much as possible to help reduce swelling and pain, Elevate the extremity when at rest *Brandon wrap on left and walking boot on right is for support and help control swelling, use it except in the shower. Be sure that is not to tight but not to loose either *Elevate when resting? *Tylenol to help with pain Immediately follow up with your family doctor for new or worsening of symptoms, or no noticeable improvement over the next 3-5 days Clinical Impressions Clinical Impression: Bilateral ankle pain Qualifiers: Chronicity: acute Qualified Code(s): M25.571 - Pain in right ankle and joints of right foot Stand Alone Forms Stand Alone Forms: Work/School Release Instructions Patient Instructions: How to Use Crutches, Acetaminophen (Alternative Therapy), How To Perform RICE (Rest, Ice, Compress, Elevate) Discharge ED Provider: Abby Maradiaga [facility] General Stated complaint: AO 07/21/23, fell down stairs, inj both ankles Mode of Arrival: Wheelchair Source of Information: Patient Limitations: No Limitations Time Seen by Provider: 07/23/23 13:15 Description of Symptoms (Recalled from Triage Doc. by RN): Patient states he fell Friday night and now his right ankle hurts and is swollen and that his left ankle hurts as well. HEENT Symptoms (Recalled from RN notes): No Resp Symptoms (Recalled from RN notes): No Skin Symptoms (Recalled from RN notes): No MS Symptoms (Recalled from RN notes): Yes Functional Status (Recalled from RN notes): wnl History of Present Illness Provider Complaint: Patient states that he was walking down the steps at home carrying a microwave when the step came off and he slipped down the steps States that since then he has been having pain and swelling in both ankles and side of foot on his right States that he has been using crutches at home to get around but today he was still having pain so he came in to get checked Related Data Previous Rx's Medication Instructions Recorded losartan 100 mg tablet 100 mg PO DAILY #90 tabs 02/20/23 celecoxib 200 mg capsule (Celebrex) 200 mg PO DAILY osteoarthritis #30 04/17/23 caps pantoprazole 40 mg tablet,delayed 40 mg PO DAILY #90 tabs 04/28/23 release (Protonix) cefdinir 300 mg capsule 300 mg PO BID #20 caps 07/22/23 dextromethorphan-guaifenesin ER 60 1 tab PO Q12H #60 tabs 07/22/23 mg-1,200 mg tab,extend release,12hr prednisone 20 mg tablet 20 mg PO .COMPLEX #15 tabs 07/22/23 Allergies Allergy/AdvReac Type Severity Reaction Status Date / Time No Known Allergies Allergy Verified 07/22/23 13:34 Worker's Comp Is this a Worker's Comp case?: [facility] Disclaimer: The information contained in this section may have been updated after the patient was seen, as this information can be updated by other users. Social History Smoking Status: Never smoker alcohol intake: never substance use type: denies use current occupational status: employed Travel in the last 8 weeks: None household members: children housing: house ROS Obtained: Yes All systems reviewed & no additional complaints except as documented and Yes Systems reviewed as appropriate & no additional complaints except as documented Constitutional Constitutional: Reports system reviewed and no additional complaints, except as documented and Reports as per HPI ENT Ears, Nose, Mouth, and Throat: Reports system reviewed and no additional complaints, except as documented and Reports as per HPI Cardiovascular Cardiovascular: Reports system reviewed and no additional complaints, except as documented and Reports as per HPI Respiratory Respiratory: Reports system reviewed and no additional complaints, except as documented and Reports as per HPI Gastrointestinal Gastrointestingal: Reports system reviewed and no additional complaints, except as documented and as per HPI Musculoskeletal Musculoskeletal: Reports system reviewed and no additional complaints, except as documented and Reports as per HPI Comments: Pain and swelling in right ankle/foot, pain in left foot after falling on steps on Friday Physical Exam General General appearance: alert and in no apparent distress ENT ENT exam: Present mucous membranes moist Respiratory Respiratory exam: Present normal lung sounds bilaterally; Absent respiratory distress or wheezes Cardiovascular Cardiovascular exam: Present regular rate, normal rhythm and normal heart sounds Abdominal Exam Abdominal exam: Present soft and normal bowel sounds; Absent distention or tenderness Expanded Lower Extremity Exam Right: Ankle exam: Present tenderness and swelling Ankle image: 1. reports tenderness and pain when he tries to walk on it Mild bruising and swelling noted 2. reports tenderness and mild swelling no bruising noted Foot/toe exam: Present tenderness and swelling Gait: not tested/not observed Neurological Exam Neurological exam: Present alert, oriented X3 and normal gait Medical Decision Making Santana Inquiry Pt receiving controlled substance: No Santana was queried for this patient: No Vital Signs: 07/23/23 12:53 Temperature 98.0 F Temperature Source Oral Pulse Rate [Radial] 87 Respiratory Rate 20 Blood Pressure [Right Arm] 128/63 Blood Pressure Mean [Right Arm] 84 Blood Pressure Source [Right Arm] Automatic Cuff Blood Pressure Position [Right Arm] Sitting 02 Sat by Pulse Oximetry 98 Oxygen Delivery Method Room Air Orders (Tests/Meds): ORDERS Category Date Time Status XR ankle LT min 3V Stat Exams 07/23/23 13:02 Ordered XR ankle RT min 3V Stat Exams 07/23/23 13:02 Ordered XR foot RT min 3V Stat Exams 07/23/23 13:02 Ordered Radiology Data #1: Image(s): Ankle (right) Image Reviewed: Yes I have reviewed radiologist's interpretation Moderate soft tissue swelling without acute bony abnomality #2: Image(s): Foot/Toes Image Reviewed: Yes I have reviewed radiologist's interpretation no acute bony abnormality #3: Image(s): Ankle (left) Image Reviewed: Yes I have reviewed radiologist's interpretation Mild soft tissue swelling without acute bony abnormality
[2023-07-23 15:19] VITALS: BP 128/63; PULSE 87; RESP 20; TEMP 36.7; O2SAT 98
== END 2023-07-23 15:20 | disposition home or self-care (01) ==
PROVIDERS: Emergency Provider Nurse Practitioner; PCP Family Medicine
DX: M25.571 Pain in right ankle and joints of right foot (principal); W10.8XXA Fall (on) (from) other stairs and steps, initial encounter
CPT/HCPCS: 73610; 73630; 99212; 99214; G0463

== ENCOUNTER 2023-09-23 18:00 | Outpatient (CLI) | payer OTHER, SELFPAY ==
[2023-09-23 18:30] LABS: Basophils % 0.4 % (0.1-2.0); Eosinophils # 0.1 K/mm3 (0.0-0.4); Eosinophils % 0.5 % (0.1-12.0); Hematocrit 34.4 % (42.0-52.0); Hemoglobin 11.7 g/dL (14.1-18.0); Lymphocytes # 0.8 K/mm3 (0.7-4.5); Lymphocytes % 8.1 % (10-50); Mean Corpuscular Hemoglobin 33.3 pg (27.0-31.2); Mean Corpuscular Volume 97.9 fl (80-94); Mean Platelet Volume 9.2 fl (7.4-10.4); Monocytes # 0.5 K/mm3 (0.1-1.0); Monocytes % 4.8 % (1.7-9.3); Neutrophils # 8.6 K/mm3 (1.8-7.8); Platelet Count 187 K/mm3 (142-424); Red Blood Count 3.51 M/mm3 (4.60-6.20)
[2023-09-23 18:34] LABS: MANUAL DIFFERENTIAL MANUAL DIFFERENTIAL (MANUAL DIFF)
[2023-09-23 18:49] LABS: Alanine Aminotransferase 22 U/L (12-78); Albumin/Globulin Ratio 1.3 (1.1-1.8); Alkaline Phosphatase 88 U/L (38-126); Anion Gap 13.9 mEq/L (5-15); Aspartate Amino Transferase 26 U/L (17-59); Bilirubin,Total 1.9 mg/dl (0.2-1.3); Blood Urea Nitrogen 23 mg/dl (9-20); Calcium 8.4 mg/dl (8.4-10.2); Carbon Dioxide 23 mmol/L (22.0-30.0); Chloride 101 mmol/L (98-107); Estimated Glomerular Filt Rate 24 ml/min (>60); GFR (African American) 29 ML/MIN (>60); Globulin 3.2 g/dL (1.3-3.2); Glucose 151 mg/dl (74-100); Potassium 3.9 mmoL/L (3.5-5.1); Sodium 134 mmol/L (136-145); Total Protein,Serum 7.2 g/dl (6.3-8.2); Uric Acid 12.4 mg/dl (3.5-8.5)
[2023-09-23 19:46] LABS: Erythrocyte Sedimentation Rate 128 mm/hr (0-20)
[2023-09-23 19:50] LABS: Lymphocytes % 19 % (10-50); Monocytes % 2 % (2-9); Neutrophils % 78 % (42-76); Platelet Estimate Normal; RBC Morphology Normal; Total Cells Counted 100
[2023-09-25 10:42] LABS: RA Latex Turbid. 18.7 IU/mL (<14.0)
[2023-09-30 08:21] LABS: Antinuclear Antibodies, IFA Positive
== END 2023-09-23 23:59 | disposition home or self-care (01) ==
LOC: LAB.DROPOF 09-24 08:21
PROVIDERS: PCP Nurse Practitioner; Visit Provider Nurse Practitioner
DX: M79.672 Pain in left foot (principal); M25.572 Pain in left ankle and joints of left foot
CPT/HCPCS: 80053; 84550; 85007; 85025; 85651; 86038; 86431

== ENCOUNTER 2023-09-24 16:27 | Outpatient (CLI) | payer OTHER, SELFPAY ==
--- NOTE | 2023-09-24 16:36 | XR_ITS ---
PROCEDURE INFORMATION: Exam: XR Left Ankle Exam date and time: 09/24/2023 4:41 PM Age: 58 years old Clinical indication: Pain; Ankle; Left; Additional info: Left foot and ankle pain TECHNIQUE: Imaging protocol: Radiologic exam of the left ankle. Views: 1 or 2 views. COMPARISON: CR XR ANKLE LT MIN 3V 07/23/2023 1:13 PM FINDINGS: Bones/joints: No acute fracture seen. Stable well corticated bony density adjacent to the lateral aspect of the talus and distal to the fibula compatible with accessory ossicle or residual of old trauma. Soft tissues: Soft tissue swelling laterally. IMPRESSION: Soft tissue swelling. No acute fracture.
--- NOTE | 2023-09-24 16:36 | XR_ITS ---
PROCEDURE INFORMATION: Exam: XR Left Foot Exam date and time: 09/24/2023 4:41 PM Age: 58 years old Clinical indication: Pain; Foot; Left; Additional info: Left foot and ankle pain TECHNIQUE: Imaging protocol: Radiologic exam of the left foot. Views: 1 or 2 views. COMPARISON: CR XR ANKLE LT 2V 09/24/2023 4:41 PM FINDINGS: Bones/joints: No acute fracture identified. Advanced degenerative changes of the 1st MTP joint. Small plantar fascial insertion heel spur. Soft tissues: See Bones/joints finding. IMPRESSION: No acute abnormality.
== END 2023-09-24 23:59 | disposition home or self-care (01) ==
LOC: RAD 16:29
PROVIDERS: PCP Nurse Practitioner; Visit Provider Nurse Practitioner
DX: M79.672 Pain in left foot (principal); M25.572 Pain in left ankle and joints of left foot
CPT/HCPCS: 73600; 73620

== ENCOUNTER 2023-10-29 11:25 | Outpatient (CLI) | payer OTHER, SELFPAY ==
[2023-10-29 19:43] LABS: Alanine Aminotransferase 32 U/L (12-78); Albumin Level 3.8 g/dl (3.5-5.0); Albumin/Globulin Ratio 1.4 (1.1-1.8); Alkaline Phosphatase 81 U/L (38-126); Anion Gap 16.2 mEq/L (5-15); Aspartate Amino Transferase 35 U/L (17-59); Bilirubin,Total 0.5 mg/dl (0.2-1.3); Blood Urea Nitrogen 21 mg/dl (9-20); Calcium 8.8 mg/dl (8.4-10.2); Carbon Dioxide 20 mmol/L (22.0-30.0); Chloride 101 mmol/L (98-107); Estimated Glomerular Filt Rate 68 ml/min (>60); GFR (African American) 83 ML/MIN (>60); Globulin 2.7 g/dL (1.3-3.2); Glucose 169 mg/dl (74-100); Potassium 4.2 mmoL/L (3.5-5.1); Sodium 133 mmol/L (136-145); Total Protein,Serum 6.5 g/dl (6.3-8.2)
[2023-10-29 20:12] LABS: Hemoglobin A1C 7.5 % (4.0-6.0)
== END 2023-10-29 23:59 | disposition home or self-care (01) ==
LOC: LAB.DROPOF 10-30 11:26
PROVIDERS: PCP Family Medicine; Visit Provider Family Medicine
DX: R73.09 Other abnormal glucose (principal); I10 Essential (primary) hypertension
CPT/HCPCS: 80053; 83036

== ENCOUNTER 2024-03-02 10:03 | Outpatient (CLI) | payer OTHER, SELFPAY ==
[2024-03-02 19:29] LABS: Coronavirus 19, PCR Not Detected (NotDetected); Influenza A, PCR Not Detected (NotDetected); Influenza B, PCR Not Detected (NotDetected)
== END 2024-03-02 23:59 | disposition home or self-care (01) ==
LOC: LAB.DROPOF 03-03 10:04
PROVIDERS: PCP Nurse Practitioner; Visit Provider Nurse Practitioner
DX: J06.9 Acute upper respiratory infection, unspecified (principal)
CPT/HCPCS: 87636

== ENCOUNTER 2024-10-08 18:57 | Emergency (ER) | payer OTHER, SELFPAY ==
[2024-10-08 19:07] VITALS: BP 190/96; PULSE 98; RESP 18; TEMP 37.2; O2SAT 96; BMI 23.0
--- NOTE | 2024-10-08 19:23 | ED_ITS ---
Discharge Plan Disposition Patient Disposition: Home, Self-Care Chief Complaint: Animal Bite Prescriptions Prescriptions: No Action amlodipine-benazepril [Lotrel] 10-40 mg capsule 1 cap PO DAILY Qty: 90 3RF albuterol sulfate 90 mcg/actuation HFA aerosol inhaler 2 puff inhalation Q4-6H PRN (Reason: shortness of breath or wheezing) Qty: 8.5 0RF dextromethorphan-guaifenesin 60-1,200 mg tablet extended release 12 hr 1 tab PO Q12H Qty: 60 0RF methylprednisolone 4 mg tablets,dose pack See Rx Instructions PO PER PKG DIR Qty: 21 0RF Rx Instructions: PO PER PKG DIR azithromycin 250 mg tablet See Rx Instructions PO .COMPLEX Qty: 6 0RF Rx Instructions: For 250 mg dose pack: take 500 mg today (day 1), then 250 mg for 4 days (days 2-5) PO ondansetron HCl 4 mg tablet 4 mg PO Q8H PRN (Reason: nausea and vomiting) Qty: 20 0RF hyoscyamine sulfate 0.125 mg tablet 0.125 mg PO QID PRN (Reason: diarrhea or abdominal cramping) Qty: 30 0RF famotidine [Pepcid] 40 mg tablet 40 mg PO BID Qty: 180 3RF colchicine [Colcrys] 0.6 mg tablet 0.6 mg PO BID Qty: 30 2RF Rx Instructions: use for gout flare ups before going to prednisone do not use if not needed allopurinol 100 mg tablet 100 mg PO DAILY Patient Comments: TAKE 2 TABLETS BY MOUTH ONCE DAILY mupirocin 2 % ointment 1 applic topical TID Qty: 22 0RF metformin 500 mg tablet 500 mg PO BID Qty: 180 3RF Referrals Follow up/Referrals: Kenyatta Barclay APRN [Primary Care Provider] - See instructions Activity Restrictions/Add. Instructions Additional Instructions/Restrictions: Increase your salt intake. Follow-up with your family doctor in 1 to 2 weeks to have repeat sodium level to ensure it is uptrending. Today it was 124. Call your family doctor to establish care for this visit to the emergency department and schedule follow-up within 48 hours to ensure improvement. If you have any worsening of your condition or any other concerning signs or symptoms, return to the emergency department or your primary care doctor for further evaluation. Clinical Impressions Clinical Impression: Dog bite of left lower leg, Cellulitis of left lower limb Instructions Patient Instructions: Animal Bites Print Language Print Language: Welsh Discharge ED Provider: Yvan Enriquez General Adult HPI General Chief complaint: Animal Bite Stated complaint: Dog bite last week,Left lower leg Time Seen by Provider: 10/08/24 18:59 Mode of Arrival: Ambulatory Source of Information: Patient Description of Symptoms (Recalled from ER Triage Doc. by RN): pt presents with c/o dog bit to left lateral calf that occurred last week with no treatment till today. Pt reports dog was his daughters. Pt reports attempt at OTC treatments with antibiotic ointment and peroxide with no improvement. Pt denies fevers, SOA. History of Present Illness HPI narrative: Please note that above description of symptoms, in this electronic medical record under categorization of recalled from ER triage doctor by RN are reflective of an initial nursing assessment, however, is not reflective of my full history and physical exam that was personally taken and clarified. Consequentially, this preceding description of symptoms, which may include the patient's categorized chief complaint in the EMR, do not reflect my personal clinical impression, and the ultimate description of history of present illness and patient stated complaints should be deferred to this section of the note. Unless stated otherwise or congruent with this section of the note, additional signs, symptoms, or incongruence should be interpreted as inaccurate with my clinical impression. Related Data Home Medications ?Medication ?Instructions ?Recorded ?Confirmed allopurinol 100 mg tablet 100 mg PO DAILY 02/20/24 04/26/24 Previous Rx's ?Medication ?Instructions ?Recorded amlodipine 10 mg-benazepril 40 mg 1 cap PO DAILY #90 caps 10/29/23 capsule (Lotrel) metformin 500 mg tablet 500 mg PO BID #180 tabs 10/30/23 colchicine 0.6 mg tablet (Colcrys) 0.6 mg PO BID #30 tabs 12/10/23 famotidine 40 mg tablet (Pepcid) 40 mg PO BID #180 tabs 12/10/23 mupirocin 2 % topical ointment 1 applic topical TID #22 grams 02/20/24 albuterol sulfate 90 mcg/actuation 2 puff inhalation Q4-6H PRN 04/26/24 aerosol inhaler shortness of breath or wheezing #8.5 grams azithromycin 250 mg tablet See Rx Instructions PO .COMPLEX #6 11/25/24 tabs dextromethorphan-guaifenesin ER 60 1 tab PO Q12H #60 tabs 04/26/24 mg-1,200 mg tab,extend release,12hr hyoscyamine sulfate 0.125 mg tablet 0.125 mg PO QID PRN diarrhea or 04/26/24 abdominal cramping #30 tabs methylprednisolone 4 mg tablets in See Rx Instructions PO PER PKG DIR 04/26/24 a dose pack #21 tabs ondansetron HCl 4 mg tablet 4 mg PO Q8H PRN nausea and 04/26/24 vomiting #20 tabs Allergies Allergy/AdvReac Type Severity Reaction Status Date / Time No Known Allergies Allergy Verified 04/26/24 15:33 [facility] Disclaimer: The information contained in this section may have been updated after the patient was seen, as this information can be updated by other users. Medical History Left ankle pain Left foot pain Rectal bleeding Dysphagia Family history of colon cancer Primary hypertension Surgical History H/O hand surgery Family History Father Heart attack Brother Heart attack Mother Cancer Social History (Updated 04/26/24 @ 15:41 by Sangeeta Sutton MA) Smoking Status: Never smoker alcohol intake: never substance use type: denies use current occupational status: employed Travel in the last 8 weeks?: None household members: children housing: house Have you lived/traveled outside [place] in past 30 days?: No Contact w/someone who lives/traveled outside US past 30 days?: No Exposure to someone with infectious disease in past 14 days?: No Do you have a fever (greater than 100.4 F or 38 C)?: No Have you tested positive for COVID-19?: No Exposed to someone with COVID-19 in past 14 days?: No Do you have a sore throat?: No Do you have a cough?: No Do you have any weakness?: No Do you have any diarrhea?: No Are you experiencing any unusual bleeding?: No Do you have any muscle aches/pain?: No Do you have any abdominal pain?: No Are you experiencing loss of taste or smell?: No Other Medical History Have you received the Flu Vaccine for this season: No Have you received the Pneumonia Vaccine: No ROS Obtained: Yes All systems reviewed & no additional complaints except as documented Physical Exam General General appearance: alert Head Head exam: atraumatic and normocephalic Eye Eye exam: Present normal appearance, PERRL and EOMI Neck Neck exam: Present normal inspection, full ROM and trachea midline Respiratory Respiratory exam: Absent respiratory distress, wheezes, stridor, accessory muscle use or prolonged expiratory phase Cardiovascular Cardiovascular exam: Present other (Pulses equal symmetric in upper and lower extremities) Abdominal Exam Abdominal exam: Present soft; Absent distention, tenderness or pulsatile mass Extremities Exam Extremities exam: Present edema and other (large purulent wound on lateral L lower extremity with erythema, warmth, purulence and tenderness.) Neurological Exam Neurological exam: Present alert, oriented X3 and CN II-XII intact; Absent motor sensory deficit Skin Skin exam: Present warm and dry; Absent diaphoresis or erythema Medical Decision Making Medical Records Medical records reviewed: Yes I reviewed the patient's medical records. Screening: Per USPSTF and CDC recommendations, given the prevalence of disease in our region, it is our hospital?s policy to screen for HIV and viral Hepatitis for all patients aged 18 and over and those with ongoing risk factors. Santana Inquiry Pt receiving controlled substance: No Santana was queried for this patient: No Vital Signs: 10/08/24 19:07 10/08/24 19:30 10/08/24 20:01 Temperature 98.9 F Temperature Source Oral Pulse Rate 92 H 98 H Pulse Rate [Radial] 98 H Respiratory Rate 18 Blood Pressure 144/83 H 155/96 H Blood Pressure [Right Arm] 190/96 H Blood Pressure Mean [Right Arm] 127 Blood Pressure Position [Right Arm] Sitting 02 Sat by Pulse Oximetry 96 98 99 Oxygen Delivery Method Room Air Lab Data Lab Results 10/08/24 19:18: WBC 7.1, RBC 3.56 L, Hgb 12.0 L, Hct 34.0 L, MCV 95.5 H, MCH 33.7 H, MCHC 35.3, RDW 11.9, Plt Count 179, MPV 8.3, Neut % (Auto) 71.1, Lymph % (Auto) 18.2, [place] % (Auto) 8.2, Eos % (Auto) 1.4, Baso % (Auto) 0.3, Neut # (Auto) 5.0, Lymph # (Auto) 1.3, [place] # (Auto) 0.6, Eos # (Auto) 0.1, Baso # (Auto) 0.0, Sodium 124 L, Potassium 4.3, Chloride 92 L, Carbon Dioxide 23, Anion Gap 13.3, BUN 10, Creatinine 1.00, Estimated Creat Clear 85, Estimated GFR 76, Est GFR ( Amer) 92, Glucose 112 H, Lactate 2.7 H, Calcium 8.8, Total Bilirubin 0.7, AST 36, ALT 19, Alkaline Phosphatase 70, Total Protein 7.5, Albumin 4.8, Globulin 2.7, Albumin/Globulin Ratio 1.8, HCV Ab ALEJANDRINA w/Rflx PCR Qn Negative, HIV Ag/Ab Combo Qual Negative 10/08/24 19:18 10/08/24 19:18 Orders (Tests/Meds): ED MEDICATIONS Discontinued Medications Generic Name Dose Route Start Last Admin Trade Name Freq PRN Reason Stop Dose Admin Amoxicillin/Clavulanate Potassium 1 each 10/08/24 19:17 10/08/24 19:25 Amoxicillin/Clavulanate Potassium 875/125mg Tablet PO 10/08/24 19:18 1 each ONCE ONE Administration Ceftriaxone Sodium 2 gm/ 100 mls @ 200 mls/hr 10/08/24 19:26 10/08/24 19:33 Sodium Chloride IV 10/08/24 19:55 200 mls/hr ONCE ONE Administration Dalbavancin 1,500 mg/ Dextrose 250 mls @ 500 mls/hr 10/08/24 19:38 10/08/24 19:59 IV 10/08/24 19:39 500 mls/hr ONCE ONE Administration Tetanus/Reduced Diphtheria/Acell Pertussis 0.5 ml 10/08/24 19:17 10/08/24 19:27 Tet/Diphth/Pert-Adult 0.5ml Syringe IM 10/08/24 19:18 0.5 ml .ONCE ONE Administration ORDERS Category Date Time Status POCUS Point of Care (ER Only) Stat Exams 10/08/24 19:17 Ordered CBC w/Auto Diff [Complete Blood Count Auto Diff] Stat Lab 10/08/24 19:18 Completed CMP [Comprehensive Metabolic Panel] Stat Lab 10/08/24 19:18 Completed HIV Combo Stat Lab 10/08/24 19:18 Completed Hepatitis C Ab Qual. W/ RFX Stat Lab 10/08/24 19:18 Completed Lactic Acid Stat Lab 10/08/24 19:18 Completed Blood Culture Stat Micro 10/08/24 19:44 Received Medical Decision Narrative: 59-year-old male presenting with dog bite to the left leg. It happened 8 days prior to this. Dog is up-to-date on vaccinations, his last tetanus was somewhere between 5 and 10 years ago. No fevers or chills, but he does have redness, warmth that is spreading from around the dog bite. Has been cleaning at home with peroxide, flushing out with water, keeping it dry with wound dressings over it. Came in for further evaluation given increased amount of pain.. It should be noted the patient does have a history of diabetes which is likely complicating current presentation, as wound healing is delayed and made more difficult in the setting of diabetes. History was obtained via conversation with patient. On arrival, patient hemodynamically stable, alert, oriented x4, appropriate, GCS 15, moving all extremities spontaneously, pupils equal and reactive to light. Full physical exam performed and significant for large complex defect in the lateral aspect of his left leg with [place]in purulence with expression, warmth, erythema spreading from multiple areas of skin defects. Granulation tissue in the bed of most of the wounds. Differential includes cellulitis, abscess, myositis, necrotizing soft tissue infection, among others. Patient placed on continuous cardiac monitoring and continuous pulse ox with initial blood pressure 190/96, heart rate 98, saturation 96% on room air. Patient was initially given p.o. Augmentin. Further consideration, patient was given 2 g of IV Rocephin for coverage. Labs were obtained. Patient has a normal white blood cell count. Chemistry with sodium of 124, but appears patient has been routinely hyponatremic since 2023, although in the 130s during these visits. Lactate mildly elevated 2.7. Bedside [id number] ultrasound was performed of the soft tissues. Patient has extensive complex cellulitis, no evidence of abscess or fluid collection. No subcutaneous gas. Given reassuring workup, patient was given a dose of Dalvance 1500 mg for extensive cellulitis of the left lower extremity. When this was finished, patient very clinically well. Tdap was updated as well. Because patient at baseline without signs or symptoms of clinical decompensation, deemed appropriate for discharge. Results were relayed to patient who voiced understanding and were agreeable to outpatient management and follow up. I discussed my clinical impression with patient and answered all questions. At this time, the evidence for any other entities in the differential is insufficient to warrant any further testing or ED observation. This was explained as well. Advisory was given that persistent or worsening symptoms require further evaluation. I confirmed the understanding of this discussion. Communications Station Manager disclaimer Much of this encounter note is an electronic vehicle inspector spoken language to printed text. Electronic vehicle inspector of the spoken language may permit errors. Although I have reviewed the note, some errors may still exist. Critical Care Critical Care Time Critical Care Time: No
[2024-10-08] MEDS: AMOXICILLIN/CLAVULANATE POTASSIUM 875/125MG TABLET 1 EACH PO (19:25)
[2024-10-08] MEDS: TET/DIPHTH/PERT-ADULT 0.5ML SYRINGE 0.5 ML IM (19:27)
[2024-10-08 19:30] VITALS: BP 144/83; PULSE 92; O2SAT 98
[2024-10-08 19:31] LABS: Basophils % 0.3 % (0.1-2.0); Eosinophils # 0.1 Kmm3 (0.0-0.4); Eosinophils % 1.4 % (0.1-12.0); Immature Granulocytes # 0.06 10^3uL; Immature Granulocytes % 0.8 %; Lymphocytes # 1.3 K/mm3 (0.7-4.5); Lymphocytes % 18.2 % (10-50); Mean Corpuscular HGB Conc 35.3 g/dL (31.8-35.4); Mean Corpuscular Hemoglobin 33.7 pg (27.0-31.2); Mean Corpuscular Volume 95.5 fl (80-94); Mean Platelet Volume 8.3 fl (7.4-10.4); Monocytes # 0.6 K/mm3 (0.1-1.0); Monocytes % 8.2 % (1.7-9.3); Neutrophils % 71.1 % (37.0-80.0); Nucleated Red Blood Cells # 0 10^3/uL; Nucleated Red Blood Cells % 0 %; Platelet Count 179 K/mm3 (142-424); Red Blood Count 3.56 M/mm3 (4.60-6.20); Red Cell Distribution Width 11.9 % (11.5-17.5); Red Cell Distribution Width-SD 41.3 fL; White Blood Count 7.1 K/mm3 (4.8-10.8)
[2024-10-08] MEDS: CEFTRIAXONE SODIUM 2 GM in 0.9 % SODIUM CHLORIDE 100 ML IV (19:33)
[2024-10-08 19:40] LABS: Alanine Aminotransferase 19 U/L (12-78); Albumin Level 4.8 g/dl (3.5-5.0); Albumin/Globulin Ratio 1.8 (1.1-1.8); Alkaline Phosphatase 70 U/L (38-126); Anion Gap 13.3 mEq/L (5-15); Aspartate Amino Transferase 36 U/L (17-59); Bilirubin,Total 0.7 mg/dl (0.2-1.3); Blood Urea Nitrogen 10 mg/dl (9-20); Calcium 8.8 mg/dl (8.4-10.2); Carbon Dioxide 23 mmol/L (22.0-30.0); Chloride 92 mmol/L (98-107); Creatinine Clearance Estimated 85 mL/min (50-200); Estimated Glomerular Filt Rate 76 ml/min (>60); GFR (African American) 92 ML/MIN (>60); Globulin 2.7 g/dL (1.3-3.2); Glucose 112 mg/dl (74-100); Potassium 4.3 mmoL/L (3.5-5.1); Sodium 124 mmol/L (136-145); Total Protein,Serum 7.5 g/dl (6.3-8.2)
[2024-10-08 19:56] LABS: Lactic Acid 2.7 mmol/L (0.7-2.1)
[2024-10-08] MEDS: DALBAVANCIN HCL 1,500 MG in DEXTROSE 5 % IN WATER 250 ML 500 MG IV (19:59)
[2024-10-08 20:01] VITALS: BP 155/96; PULSE 98; O2SAT 99
[2024-10-08 20:22] LABS: HIV Combo NEGATIVE (Negative)
[2024-10-08 20:30] LABS: Hepatitis C Ab Qual. W/ RFX NEGATIVE (Negative)
[2024-10-08 20:58] VITALS: BP 174/101; PULSE 94; RESP 14; TEMP 37.2; O2SAT 96
[2024-10-08 23:28] LABS: Reflex Lactic Add Lactic Reflex
== END 2024-10-08 20:59 | disposition home or self-care (01) ==
PROVIDERS: Emergency Provider Emergency Medicine; PCP Nurse Practitioner
DX: L03.116 Cellulitis of left lower limb (principal); E87.1 Hypo-osmolality and hyponatremia; E11.9 Type 2 diabetes mellitus without complications; W54.0XXA Bitten by dog, initial encounter; Z23 Encounter for immunization; Z11.59 Encounter for screening for other viral diseases; Z11.4 Encounter for screening for human immunodeficiency virus [HIV]
CPT/HCPCS: 80053; 83605; 85025; 86803; 87040; 87389; 90471; 90715; 96365; 96375; 99285; J0696; J0875; J7060

== ENCOUNTER 2024-11-02 12:19 | Outpatient (CLI) | payer OTHER, SELFPAY ==
[2024-11-02 18:14] LABS: Basophils % 0.8 % (0.1-2.0); Hematocrit 35.4 % (42.0-52.0); Immature Granulocytes # 0.02 10^3uL; Immature Granulocytes % 0.4 %; Lymphocytes % 19.1 % (10-50); Mean Corpuscular HGB Conc 33.9 g/dL (31.8-35.4); Mean Corpuscular Hemoglobin 34.2 pg (27.0-31.2); Mean Corpuscular Volume 100.9 fl (80-94); Monocytes # 0.5 K/mm3 (0.1-1.0); Monocytes % 9.8 % (1.7-9.3); Neutrophils # 3.7 K/mm3 (1.8-7.8); Neutrophils % 69.9 % (37.0-80.0); Nucleated Red Blood Cells # 0 10^3/uL; Nucleated Red Blood Cells % 0 %; Platelet Count 194 K/mm3 (142-424); Red Blood Count 3.51 M/mm3 (4.60-6.20); Red Cell Distribution Width 12.2 % (11.5-17.5); Red Cell Distribution Width-SD 45.1 fL; White Blood Count 5.2 K/mm3 (4.8-10.8)
[2024-11-02 18:47] LABS: Alanine Aminotransferase 23 U/L (12-78); Albumin Level 4.5 g/dl (3.5-5.0); Albumin/Globulin Ratio 1.5 (1.1-1.8); Alkaline Phosphatase 59 U/L (38-126); Anion Gap 15.9 mEq/L (5-15); Aspartate Amino Transferase 43 U/L (17-59); Bilirubin,Total 0.7 mg/dl (0.2-1.3); Blood Urea Nitrogen 12 mg/dl (9-20); Calcium 9.5 mg/dl (8.4-10.2); Carbon Dioxide 24 mmol/L (22.0-30.0); Chloride 97 mmol/L (98-107); Chol/HDL Ratio 2.4 (1-3.5); Cholesterol 188 mg/dl (140-200); Estimated Glomerular Filt Rate 76 ml/min (>60); GFR (African American) 92 ML/MIN (>60); Glucose 97 mg/dl (74-100); HDL Cholesterol 80 mg/dl (40-60); Magnesium 1.6 mg/dl (1.6-2.3); Phosphorous 3.5 mg/dl (2.5-4.5); Potassium 4.9 mmoL/L (3.5-5.1); Sodium 132 mmol/L (136-145); Total Protein,Serum 7.5 g/dl (6.3-8.2); Triglycerides 222 mg/dl (30-150); Uric Acid 3.4 mg/dl (3.5-8.5); VLDL Cholesterol 44 mg/dL (0-40)
[2024-11-02 18:57] LABS: Direct LDL Cholesterol 62.64 mg/dL (100-129)
[2024-11-02 19:02] LABS: 25-OH Vitamin D, Total 25.1 ng/mL (30-100)
[2024-11-02 19:38] LABS: Microalbumin/Creatinine Ratio 26.9
[2024-11-02 19:39] LABS: Creatinine,Urine Random 194 mg/dL (Not Estab.)
[2024-11-02 19:40] LABS: Hemoglobin A1C 4.7 % (4.0-6.0)
[2024-11-02 19:47] LABS: Prostate Specific Ag Screen 0.6 ng/ml (0.0-4.0); Thyroid Stimulating Hormone 3.72 uIU/mL (0.465-4.68)
[2024-11-02 20:06] LABS: Vitamin B12 223 pg/mL (239-931)
[2024-11-04 06:18] LABS: Hepatitis B Surface Antigen Negative (Negative)
== END 2024-11-02 23:59 | disposition home or self-care (01) ==
LOC: LAB.DROPOF 11-03 09:48
PROVIDERS: PCP Nurse Practitioner; Visit Provider Nurse Practitioner
DX: E11.9 Type 2 diabetes mellitus without complications (principal); R52 Pain, unspecified; Z13.220 Encounter for screening for lipoid disorders; Z13.0 Encounter for screening for diseases of the blood and blood-forming organs and certain disorders involving the immune mechanism; Z12.5 Encounter for screening for malignant neoplasm of prostate
CPT/HCPCS: 80053; 80061; 82043; 82306; 82570; 82607; 83036; 83735; 84100; 84443; 84550; 85025; 87340; G0103

== ENCOUNTER 2025-02-02 11:00 | Outpatient (CLI) | payer OTHER, SELFPAY ==
[2025-02-02 19:22] LABS: Alanine Aminotransferase 25 U/L (12-78); Albumin Level 4.2 g/dl (3.5-5.0); Albumin/Globulin Ratio 1.4 (1.1-1.8); Alkaline Phosphatase 76 U/L (38-126); Anion Gap 17.1 mEq/L (5-15); Aspartate Amino Transferase 54 U/L (17-59); Bilirubin,Total 0.7 mg/dl (0.2-1.3); Blood Urea Nitrogen 7 mg/dl (9-20); Calcium 8.9 mg/dl (8.4-10.2); Carbon Dioxide 23 mmol/L (22.0-30.0); Chloride 105 mmol/L (98-107); Creatinine,Serum 1.10 mg/dl (0.66-1.25); Estimated Glomerular Filt Rate 68 ml/min (>60); GFR (African American) 82 ML/MIN (>60); Globulin 3.1 g/dL (1.3-3.2); Glucose 81 mg/dl (74-100); Potassium 4.1 mmoL/L (3.5-5.1); Sodium 141 mmol/L (136-145); Total Protein,Serum 7.3 g/dl (6.3-8.2)
[2025-02-02 20:06] LABS: Vitamin B12 286 pg/mL (239-931)
[2025-02-02 20:07] LABS: Hemoglobin A1C 4.7 % (4.0-6.0)
[2025-02-02 22:49] LABS: 25-OH Vitamin D, Total 51.3 ng/mL (30-100)
--- OUTSIDE RECORDS SUMMARY | 2025-02-04 09:16 | XMS_ITS | Clinical Summary ---
Author Organization 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 Active lisinopril (PRINIVIL;ZESTR IL) 10 mg Oral Tablet Take 10 mg by mouth daily. Active loratadine (CLARITIN) 10 mg Oral Tablet Take 10 mg by mouth daily. Active meloxicam (MOBIC) 15 mg Oral Tablet Take 15 mg by mouth daily. Active metoprolol (LOPRESSOR) 100 mg Oral Tablet Take 100 mg by mouth 2 times daily. Active naproxen (NAPROSYN) 500 mg Oral Tablet Take 1 Tab by mouth 2 times daily as needed for Pain. 15 Tab 0 Active Additional Information Patient not taking.Reason: Pt electing to not take the medication, Reported on 02/24/2020 Surgical History Surgery Date Site/Laterality Comments ESOPHAGUS SURGERY Social History Tobacco Use Types Packs/Day Years Used Date Smoking Tobacco: Never Smokeless Tobacco: Current Snuff Alcohol Use Standard Drinks/Week Comments No 0 (1 standard drink = 0.6 oz pur e alcohol) Sex and Gender Information Value Date Recorded Sex Assigned at Not on file Legal Sex Male 7:04 AM EDT Gender Identity Not on file Sexual Orientation Not on file Obstetrics History Last Filed Vital Signs Vital Sign Reading Time Taken Comments Blood Pressure 188/87 02/24/2020 7:41 PM EDT Pulse 84 02/24/2020 7:41 PM EDT Temperature 37.7 C (99.8 F) 02/24/2020 7:41 PM EDT Respiratory Rate 14 02/24/2020 7:41 PM EDT Oxygen Saturation 100% 02/24/2020 7:41 PM EDT Inhaled Oxygen Concentration - - Weight 79.4 kg (175 lb) 02/24/2020 7:41 PM EDT Height 182.9 cm (6') 02/24/2020 7:41 PM EDT Body Mass Index 23.73 02/24/2020 7:41 PM EDT Plan of Treatment Health Maintenance Due Date Last Done Comments Annual Wellness Exam 1966 Hepatitis C Screening 1981 Cologuard 01/07/2008 Colon Cancer Screening 01/07/2008 Colonoscopy 01/07/2008 FIT 01/07/2008 Sigmoidoscopy 01/07/2008 Virtual Colonography 01/07/2008 Pneumococcal Vaccine 50+ (1 of 1 - PCV) 2013 Zoster (1 of 2) 2013 COVID-19 Vaccine (1 - 2023-2 5 season) 2025 Influenza Vaccine (#1) 2025 DTaP/TDaP/Td (2 - Td or Tdap) 07/24/2025, 08/06/1996 Hepatitis B Vaccine Aged Out No longe r eligible based on patient's age to complete this topic Meningococcal B Vaccine Aged Out No l onger eligible based on patient's age to complete this topic Insurance [employer] [facility] [place] AETNA [facility] [place] Care Teams Cake Decorator Relationship Specialty Start Date End Date Kedar Farooq [facility] [address] [place] [address] PCP - General Family Medicine 05/16/11
== END 2025-02-02 23:59 ==
LOC: LAB.DROPOF 02-04 09:14
PROVIDERS: PCP Nurse Practitioner; Visit Provider Nurse Practitioner
DX: E55.9 Vitamin D deficiency, unspecified (principal); E53.8 Deficiency of other specified B group vitamins; E11.9 Type 2 diabetes mellitus without complications
CPT/HCPCS: 80053; 82306; 82607; 83036